=== PATIENT | female | born 2005 | race Caucasian/White ===

== ENCOUNTER 2024-09-02 20:28 | Emergency (ER) | payer OTHER, SELFPAY ==
[2024-09-02 20:29] VITALS: BP 121/84; PULSE 92; RESP 16; TEMP 36.4; O2SAT 100
--- NOTE | 2024-09-02 20:43 | RAD_ITS ---
INDICATION: INJURY EXAMINATION/TECHNIQUE: X-RAY - LEFT XR Ankle Min 3 Views 3 VIEWS COMPARISON: FINDINGS: SOFT TISSUES: Mild lateral soft tissue swelling. No radiopaque foreign body. BONES/JOINTS: No acute fracture or subluxation.. Normal alignment. Preservation of the joint space.. No sclerotic or destructive changes observed. RAD/Ankle min 3 Views IMPRESSION: No acute bony injury. Electronically Signed: Mikhail Mccabe DO at 22:02 EDT ,
--- NOTE | 2024-09-02 22:45 | EDS_ITS ---
HPI History of Present Illness Chief Complaint: Lower Extremity Injury Detail of Chief Complaint: Injury to the left ankle playing volleyball Informant: patient Occured/Mechanism Mechanism/Context: Yes injury and Yes blunt trauma Comment: Plantar inversion mechanism of injury Onset/Context/Timing Onset: Hours Context: Sudden Onset Timing: Continuous Quality of Pain: Dull and Aching Location: Left ankle Current Severity: Mild Maximum Severity: Severe Worsened by: Movement, palpation and weightbearing Relieved by: Nothing Associated Symptoms Associated Symptoms: Positive for Loss of Funtion; Negative for Parasthesia or Weakness Narrative Narrative: Patient is a 19-year-old [facility] girl who presents with plantar inversion mechanism injury to her left ankle. This occurred playing volleyball. She came down another person's foot and rolled it. She is having difficulty bearing weight. She denies paresthesia, anesthesia medics. She denies prior injury. Prior similar symptoms: No Recent Illness/Hospitalization: No PFSH PFSH Medical History no medical history no medical history Home Medications ?Medication ?Instructions ?Recorded ?Last Taken ?Type hydrocodone-acetaminophen 5-325mg 1 tab PO Q6H PRN PRN Pain 3 days 09/02/24 Unknown Rx 5mg-325mg #10 TABLETS naproxen 500 mg tablet 500 mg PO BID #14 tabs 09/02/24 Unknown Rx Allergy/AdvReac Type Severity Reaction Status Date / Time No Known Allergies Allergy Verified 09/02/24 20:32 Surgical History no surgical history no surgical history ROS [facility] ED Musculoskeletal Musculoskeletal: Reports other Details: Left ankle pain with swelling laterally Integumentary Denies Abrasions or rash Neurologic Neurologic: Denies paresthesias or weakness Hematologic/Lymphatic Hematologic/Lymphatic: Denies easy bleeding or easy bruising EXAM Physical Exam Const Vital Signs: 09/02/24 20:29 Temperature 97.6 F L Temperature Source Temporal Pulse Rate 92 Respiratory Rate 16 Blood Pressure 121/84 H Blood Pressure Mean 96 Pulse Ox 100 Oxygen Delivery Method Room Air Positive well nourished and well developed General Appearance ED: well developed; Negative for NAD HEENT normocephalic Eyes PERRL Resp normal respiratory effort Cardio regular rate and regular rhythm Extremity Negative for normal to inspection or full ROM Extremity Narrative: There is swelling and pain ovation over the lateral malleolus. There is pain ovation over the anterior talofibular, calcaneofibular ligament. There is no pain the patient with Achilles tendon. There is no laxity or drawer testing. There is no pain to palpation of the base of the fifth metatarsal. DP and PT pulse are palpable. There is no pain the patient over the medial malleolus or deltoid ligament. General Extremety ED: Yes weight-bearing difficulty General Extremity: weight-bearing difficulty Neuro oriented x3, CN's II-XII intact bilaterally and moves all extremities Sensorium / Orientation: alert Psych mental status grossly normal Skin no wounds Lesions: no lesions Rashes: no rashes MDM MDM MDM Narrative Medical decision making narrative: X-ray was obtained per nurse protocol. Differential diagnosis is sprain versus fracture. Radiography Chest X-Ray - ED: Read by ED Physician (Three-view x-ray of the left ankle reveals soft tissue swelling. There is no evidence of fracture, subluxation or dislocation.) Diagnostic Testing: Clinical Impression(s) from Imaging Studies Ankle X-Ray 09/02/24 20:43 IMPRESSION: No acute bony injury. Electronically Signed: Mikhail Mccabe DO at 22:02 EDT Reading Location ID and State: [facility] / [place] Tel [phone], Service support , Treatment and Re-Evaluation Narrative: Patient was treated with oral analgesics and Aircast. Discharge Plan Triage Chief Complaint: Lower Extremity Injury ED Provider: Tamir Bryant Dx/Rx/DC Orders Clinical Impression: Sprain of anterior talofibular ligament of left ankle, Sprain of calcaneofibular ligament of left ankle Instructions: ED Ankle Sprain (Adult) Prescriptions: New hydrocodone-acetaminophen 5-325 mg tablet 1 tab PO Q6H PRN PRN (Reason: Pain) 3 Days Qty: 10 0RF naproxen 500 mg tablet 500 mg PO BID Qty: 14 0RF Primary Care Provider: NOT,DEFINED Referrals: NOT,DEFINED [Primary Care Provider] - Doctor,Your [Non-Staff] - As Needed Activity Restrictions/Additional Instructions: Wear air splint during the day. Wear flat shoes. Do not go up inclines or ladder. Apply ice to your ankle 6-8 times a day for 20 to 30 minutes per application You may be sore for 1 to 3 weeks Print Language: Tajik Disposition Disposition: Home, Self Care
[2024-09-02] MEDS: Naproxen 500 MG Tablet PO (23:02)
[2024-09-02] MEDS: HYDROcodone Bitartrate/Apap 5/325 Tablet PO (23:03)
[2024-09-02 23:05] VITALS: BMI 26.1
== END 2024-09-02 23:33 | disposition home or self-care (01) ==
LOC: ED 23:05
PROVIDERS: Emergency Provider Emergency Medicine; Visit Provider Emergency Medicine
DX: S93.492A Sprain of other ligament of left ankle, initial encounter (principal); S93.412A Sprain of calcaneofibular ligament of left ankle, initial encounter; X50.1XXA Overexertion from prolonged static or awkward postures, initial encounter; Y93.68 Activity, volleyball (beach) (court)
CPT/HCPCS: 73610; 99285